=== PATIENT | female | born 1995 | race Caucasian/White ===

== ENCOUNTER 2023-09-08 08:40 | Outpatient (OUT) | payer OTHER, SELFPAY ==
[2023-09-08 10:27] LABS: HCG Quantitative 88854 mIU/mL
== END 2023-09-08 08:41 | disposition home or self-care (01) ==
LOC: LAB 08:41
PROVIDERS: Visit Provider Specialist
DX: Z36.87 Encounter for antenatal screening for uncertain dates (principal); Z32.00 Encounter for pregnancy test, result unknown
CPT/HCPCS: 36415; 84702